=== PATIENT | male | born 1980 | race African-American/Black ===

== ENCOUNTER 2017-03-26 13:41 | Emergency (ER) | payer SELFPAY ==
[2017-03-26 13:50] VITALS: BP 147/95
--- NOTE | 2017-03-26 14:31 | EDM.PDOC ---
ED HPI GENERAL MEDICAL PROBLEM - General Chief Complaint: Medication Administration Stated Complaint: Neck pain Time Seen by Provider: 03/26/17 14:10 Source of Information: Reports: Patient, RN Notes Reviewed History Limitations: Reports: No Limitations - History of Present Illness INITIAL COMMENTS - FREE TEXT/NARRATIVE: 36 year old male presents to the ED today requesting refill of [place] 10/325mg tablets for chronic neck pain. He is new to the state and has been out of his pain medication for 3 weeks. He went through withdrawals. He is from [place] and had a pain specialist there. He moved to [place] for work and does not have a PCP. He is in the process of transferring his insurance to [place]. He denies any new or acute injuries. Neck Pain Score (Numeric/FACES): 6 - Related Data Allergies Allergy/AdvReac Type Severity Reaction Status Date / Time No Known Allergies Allergy Verified 03/26/17 13:51 Home Meds: Home Meds Acetaminophen/HYDROcodone [[place] 325-5 MG] 1 tab PO Q4H PRN #20 tablet 03/26/17 [Rx] Past Medical History Musculoskeletal History: Reports: Neck Pain, Chronic ED ROS GENERAL - Review of Systems Review Of Systems: See Below Constitutional: Reports: No Symptoms. Denies: Fever, Chills Respiratory: Reports: No Symptoms. Denies: Shortness of Breath Cardiovascular: Reports: No Symptoms. Denies: Chest Pain GI/Abdominal: Reports: No Symptoms. Denies: Nausea, Vomiting Musculoskeletal: Reports: Neck Pain ED EXAM, GENERAL - Physical Exam Exam: See Below Exam Limited By: No Limitations General Appearance: Alert, WD/WN, No Apparent Distress Neck: Normal Inspection, Supple, Full Range of Motion, Tender Lateral. No: Tender Midline Respiratory/Chest: No Respiratory Distress, Lungs Clear, Normal Breath Sounds Cardiovascular: Regular Rate, Rhythm GI/Abdominal: Normal Bowel Sounds, Soft, Non-Tender Neurological: Alert, Normal Cognition Skin Exam: Warm, Dry, Intact Course - Vital Signs Last Recorded V/S: Last Vital Signs Temp 98.1 F 03/26/17 13:48 Pulse 118 H 03/26/17 13:48 Resp 18 03/26/17 13:48 BP 147/95 H 03/26/17 13:48 Pulse Ox 99 03/26/17 13:48 - Re-Assessments/Exams Free Text/Narrative Re-Assessment/Exam: Reviewed prescription drug registry. The patient has had no pain medications prescribed in the state of [place]. Will prescribe 20 tabs of Fly Creek. He will be referred to Gilda CERRATO in the clinic. Instructed to call his pain specialist and PCP back home to have records sent as soon as possible. Will prescribed [place] 5/325 #20. I explained that we do not treat chronic pain and that we will not refill his medication in the future. I asked the business office to talk to him about financial assistance so that he can get his medical needs met in a timely manner. Departure - Departure Time of Disposition: 14:40 Disposition: Home, Self-Care 01 Condition: Good Clinical Impression: Chronic neck pain - Discharge Information Prescriptions: Acetaminophen/HYDROcodone [[place] 325-5 MG] 1 tab PO Q4H PRN #20 tablet PRN Reason: Pain Instructions: Chronic Pain Forms: ED Department Discharge Additional Instructions: Follow-up in our Medical Clinic on Thursday at 12:00 noon with BLOSSOM Toth. Please arrive at 1130 for registration. Call [phone] to reschedule if needed Our medical clinic is located on the east side of the building. [place] on the main floor. Please call the medical records department at your previous facility and have your records faxed to [phone], attention Gilda Martinez. Fly Creek 1 tab every 4 hours as needed for pain
== END 2017-03-26 15:00 | disposition home or self-care (01) ==
LOC: JD.ED 13:41
DX: M54.2 Cervicalgia (principal); G89.29 Other chronic pain
CPT/HCPCS: 99282; 99283

== ENCOUNTER 2017-06-05 23:31 | Emergency (ER) | payer SELFPAY ==
[2017-06-05 23:56] VITALS: BP 135/91
== END 2017-06-06 01:21 | disposition left against medical advice (07) ==
LOC: JD.ED 23:31
DX: Z53.21 Procedure and treatment not carried out due to patient leaving prior to being seen by health care provider (principal)
CPT/HCPCS: 99283-25